=== PATIENT | female | born 1980 | race Caucasian/White ===

== ENCOUNTER 2017-07-10 14:34 | Emergency (ER) | payer OTHER ==
[2017-07-10 14:58] VITALS: BP 106/75
[2017-07-10 15:22] LABS: Basophils % (Auto) 0.4 % (0.0-1.8); Eosinophils # (Auto) 0.1 K/mm3 (0.0-0.4); Eosinophils % (Auto) 1.9 % (0.0-4.3); Hematocrit 37.8 % (30.3-42.9); Hemoglobin 12.6 gm/dl (10.1-14.3); Lymphocytes # (Auto) 2.8 K/mm3 (1.2-5.4); Lymphocytes % (Auto) 43.2 % (13.4-35.0); Mean Corpuscular HGB Conc 33 % (30-34); Mean Corpuscular Hemoglobin 31 pg (28-32); Mean Corpuscular Volume 94 fl (79-97); Monocytes # (Auto) 0.4 K/mm3 (0.0-0.8); Monocytes % (Auto) 5.9 % (0.0-7.3); Platelet Count 292 K/mm3 (140-440); Red Blood Count 4.01 M/mm3 (3.65-5.03); Red Cell Distribution Width 13.3 % (13.2-15.2)
[2017-07-10 15:34] LABS: Alanine Aminotransferase 14 units/L (7-56); Albumin 4.2 g/dL (3.9-5); BUN/Creatinine Ratio 18; Blood Urea Nitrogen 9 mg/dL (7-17); Calcium 9.2 mg/dL (8.4-10.2); Hemolysis Index 4; Lipase 53 units/L (13-60)
[2017-07-10 16:20] LABS: HCG Qualitative,Urine Negative (Negative)
[2017-07-10 16:25] LABS: Bilirubin,Urine NEG (Negative); Blood,Urine LG (Negative); Color,Urine Red (Yellow); RBC,Urine > 182.0 /HPF (0.0-6.0); Urobilinogen,Urine < 2.0 mg/dL (<2.0)
[2017-07-10] MEDS ORDERED: NORCO 7.5/325 ONE (18:01)
[2017-07-10] MEDS ORDERED: ZOFRAN ODT ONE (18:01)
[2017-07-10] MEDS ORDERED: ZOFRAN ODT PO ONE (18:01)
[2017-07-10] MEDS ORDERED: NORCO 7.5/325 PO ONE (18:01)
--- NOTE | 2017-07-10 18:05 | Emergency Department Report ---
Blank Doc - Documentation Documentation: Patient is a 37-year-old female who is complaining of right flank pain. Patient states pain is been present for approximately 1 week. Patient has nausea but no vomiting. Patient denies any dysuria this time. Patient is on her menses with this started just today. Laboratory studies will be done as well as urinalysis and CT rule out stone.
--- NOTE | 2017-07-10 20:28 | Cat Scan Report ---
FINAL REPORT EXAM: CT ABDOMEN PELVIS WO CON HISTORY: right flank pain TECHNIQUE: CT abdomen and pelvis without contrast PRIORS: None. FINDINGS: No acute abnormality identified in the lung bases. No focal abnormality identified within the liver parenchyma. The spleen demonstrates normal size and attenuation. No pancreatic abnormalities seen. Kidneys demonstrate no evidence of hydronephrosis or nephrolithiasis. No ureteral calculus identified. The adrenal glands are unremarkable. Abdominal aorta is normal in caliber. No pathologically enlarged lymph nodes are identified. No signs of free fluid or free air No evidence of small bowel dilatation. The appendix is identified and is normal in size no adjacent inflammatory change seen. Tubal ligation clips are noted at the the adnexa bilaterally. The urinary bladder is unremarkable. IMPRESSION: Negative. No acute abnormalities seen
--- NOTE | 2017-07-10 20:54 | Emergency Department Report ---
HPI - General Chief Complaint: Abdominal Pain Time Seen by Provider: 07/10/17 17:53 - HPI HPI: This is a 37-year-old female presents ED complaining of flank pain for the past 2-3 days. She does take some mild dysuria but no other complaints. She states that she is currently on her period and has no nausea/vomiting/abdominal pain/ chest pains or shortness of breath or problems ED Past Medical Hx - Past Medical History Previous Medical History?: Yes Additional medical history: Vaginal dleivery x 3 - Surgical History Past Surgical History?: No - Social History Smoking Status: Never Smoker Substance Use Type: Alcohol - Medications Home Medications: Home Medications Medication Instructions Recorded Confirmed Last Taken Type Ibuprofen [Motrin] 800 mg PO Q8HR PRN #30 tablet 07/10/17 Unknown Rx Sulfamethoxazole/Trimethoprim 1 each PO BID #14 tablet 07/10/17 Unknown Rx [Bactrim DS TAB] ED Review of Systems ROS: Stated complaint: ABD PN Other details as noted in HPI Constitutional: denies: chills, fever Eyes: denies: eye pain, eye discharge, vision change ENT: denies: ear pain, throat pain Respiratory: denies: cough, shortness of breath, wheezing Cardiovascular: denies: chest pain, palpitations Endocrine: no symptoms reported Gastrointestinal: denies: abdominal pain, nausea, diarrhea Genitourinary: denies: urgency, dysuria, discharge Musculoskeletal: denies: back pain, joint swelling, arthralgia Skin: denies: rash, lesions Neurological: denies: headache, weakness, paresthesias Psychiatric: denies: anxiety, depression Hematological/Lymphatic: denies: easy bleeding, easy bruising Physical Exam - Physical Exam Vital Signs: Vital Signs 07/10/17 07/10/17 14:53 18:07 Temperature 97.4 F L Pulse Rate 69 Respiratory 18 18 Rate Blood Pressure 106/75 O2 Sat by Pulse 99 Oximetry Physical Exam: GENERAL: Alert and oriented x3, no apparent distress, Normal Gait, atraumatic. HEAD: Head is normocephalic and a-traumatic. LUNGS: Symetrical with respiration, No wheezing, no rales or crackles, CTAB. HEART: S1, S2 present, regular rate and rhythm without murmur, no rubs, no gallops. Non tender to palpation ABDOMEN: No organomegaly was noted,Positive bowel sounds, soft, and non- distended. . Nontender to palpation on all Quadrants, NO CVA tenderness. BACK: Full range of motion, no spinal tenderness, nontender to palpation. NEUROLOGIC: The patient is cooperative with no focal neurologic deficits. PSYCHIATRIC: Mood is congruent with affect, denies suicidal or homicidal ideations. SKIN: Warm and dry, No lesions, No ulceration or induration present. ED Course Vital Signs 07/10/17 07/10/17 14:53 18:07 Temperature 97.4 F L Pulse Rate 69 Respiratory 18 18 Rate Blood Pressure 106/75 O2 Sat by Pulse 99 Oximetry ED Medical Decision Making - Lab Data Result diagrams: 07/10/17 15:12 07/10/17 15:12 Laboratory Last Values WBC 6.4 K/mm3 (4.5-11.0) 07/10/17 15: RBC 4.01 M/mm3 (3.65-5.03) 07/10/17 15:12 Hgb 12.6 gm/dl (10.1-14.3) 07/10/17 15:12 Hct 37.8 % (30.3-42.9) 07/10/17 15:12 MCV 94 fl (79-97) 07/10/17 15:12 MCH 31 pg (28-32) 07/10/17 15:12 MCHC 33 % (30-34) 07/10/17 15:12 RDW 13.3 % (13.2-15.2) 07/10/17 15:12 Plt Count 292 K/mm3 (140-440) 07/10/17 15:12 Lymph % (Auto) 43.2 % (13.4-35.0) H 07/10/17 15:12 Churchill % (Auto) 5.9 % (0.0-7.3) 07/10/17 15:12 Eos % (Auto) 1.9 % (0.0-4.3) 07/10/17 15:12 Baso % (Auto) 0.4 % (0.0-1.8) 07/10/17 15:12 Lymph # 2.8 K/mm3 (1.2-5.4) 07/10/17 15:12 Churchill # 0.4 K/mm3 (0.0-0.8) 07/10/17 15:12 Eos # 0.1 K/mm3 (0.0-0.4) 07/10/17 15:12 Baso # 0.0 K/mm3 (0.0-0.1) 07/10/17 15:12 Seg Neutrophils % 48.6 % (40.0-70.0) 07/10/17 15:12 Seg Neutrophils # 3.1 K/mm3 (1.8-7.7) 07/10/17 15:12 Sodium 139 mmol/L (137-145) 07/10/17 15:12 Potassium 3.9 mmol/L (3.6-5.0) 07/10/17 15:12 Chloride 103.1 mmol/L (98-107) 07/10/17 15:12 Carbon Dioxide 23 mmol/L (22-30) 07/10/17 15:12 Anion Gap 17 mmol/L 07/10/17 15:12 BUN 9 mg/dL (7-17) 07/10/17 15:12 Creatinine 0.5 mg/dL (0.7-1.2) L 07/10/17 15:12 Estimated GFR > 60 ml/min 07/10/17 15:12 BUN/Creatinine Ratio 18 % 07/10/17 15:12 Glucose 99 mg/dL (65-100) 07/10/17 15:12 Calcium 9.2 mg/dL (8.4-10.2) 07/10/17 15:12 Total Bilirubin < 0.20 mg/dL (0.1-1.2) 07/10/17 15:12 AST 17 units/L (5-40) 07/10/17 15:12 ALT 14 units/L (7-56) 07/10/17 15:12 Alkaline Phosphatase 70 units/L (35-129) 07/10/17 15:12 Total Protein 6.6 g/dL (6.3-8.2) 07/10/17 15:12 Albumin 4.2 g/dL (3.9-5) 07/10/17 15:12 Albumin/Globulin Ratio 1.8 % 07/10/17 15:12 Lipase 53 units/L (13-60) 07/10/17 15:12 Urine Color Red (Yellow) 07/10/17 15:57 Urine Turbidity Clear (Clear) 07/10/17 15:57 Urine pH 5.0 (5.0-7.0) 07/10/17 15:57 Ur Specific [place] 1.012 (1.003-1.030) 07/10/17 15:57 Urine Protein 100 mg/dl mg/dL (Negative) 07/10/17 15:57 Urine Glucose (UA) Neg mg/dL (Negative) 07/10/17 15:57 Urine Ketones Neg mg/dL (Negative) 07/10/17 15:57 Urine Blood Lg (Negative) 07/10/17 15:57 Urine Nitrite Neg (Negative) 07/10/17 15:57 Ur Reducing Substances Not Reportable 07/10/17 15:57 Urine Bilirubin Neg (Negative) 07/10/17 15:57 Urine Ictotest Not Reportable 07/10/17 15:57 Urine Urobilinogen < 2.0 mg/dL (<2.0) 07/10/17 15:57 Ur Leukocyte Esterase Tr (Negative) 07/10/17 15:57 Urine WBC (Auto) 26.0 /HPF (0.0-6.0) H 07/10/17 15:57 Urine RBC (Auto) > 182.0 /HPF (0.0-6.0) 07/10/17 15:57 U Epithel Cells (Auto) 4.0 /HPF (0-13.0) 07/10/17 15:57 Urine HCG, Qual Negative (Negative) 07/10/17 15:57 - Radiology Data Radiology results: report reviewed, image reviewed FINAL REPORT EXAM: CT ABDOMEN PELVIS WO CON HISTORY: right flank pain TECHNIQUE: CT abdomen and pelvis without contrast PRIORS: None. FINDINGS: No acute abnormality identified in the lung bases. No focal abnormality identified within the liver parenchyma. The spleen demonstrates normal size and attenuation. No pancreatic abnormalities seen. Kidneys demonstrate no evidence of hydronephrosis or nephrolithiasis. No ureteral calculus identified. The adrenal glands are unremarkable. Abdominal aorta is normal in caliber. No pathologically enlarged lymph nodes are identified. No signs of free fluid or free air No evidence of small bowel dilatation. The appendix is identified and is normal in size no adjacent inflammatory change seen. Tubal ligation clips are noted at the the adnexa bilaterally. The urinary bladder is unremarkable. IMPRESSION: Negative. No acute abnormalities seen Transcribed By: DK Dictated By: AMBER RUEDA MD Electronically Authenticated By: AMBER RUEDA MD Signed Date/Time: 07/10/172022 - Medical Decision Making 37-year-old female presents with urinary tract infection ED course: Urinalysis positive for bacteria, leukocyte esterase. CT scan of the abdomen shows no kidney stones. She reported above Vital signs are normal patient is in no acute distress. Patient labs and CT scans were discussed with her. She understands instructions. CT scan shows no abnormality,. I discussed the patient and follow up with primary care physician. I discussed the patient and take all antibiotics for urinary tract infection. Vital signs are normal patient is in no acute distress. Patient understands all instructions given Critical care attestation.: If time is entered above; I have spent that time in minutes in the direct care of this critically ill patient, excluding procedure time. ED Disposition Clinical Impression: UTI (urinary tract infection) Qualifiers: Urinary tract infection type: acute cystitis Hematuria presence: with hematuria Qualified Code(s): N30.01 - Acute cystitis with hematuria Disposition: TO HOME OR SELFCARE Is pt being admited?: No Does the pt Need Aspirin: No Condition: Stable Instructions: Urinary Tract Infection in Women (ED), Abdominal Pain (ED), Flank Pain (ED) Additional Instructions: Make sure to follow up with the primary care physician as discussed. Take all your medications as you've been prescribed. If you have any worsening symptoms or develop new symptoms please return to ED immediately. Prescriptions: Ibuprofen [Motrin] 800 mg PO Q8HR PRN #30 tablet PRN Reason: Pain Sulfamethoxazole/Trimethoprim [Bactrim DS TAB] 1 each PO BID #14 tablet Referrals: PRIMARY CAREMD [Primary Care Provider] - 3-5 Days [facility] [Outside] - 3-5 Days [facility] [Outside] - 3-5 Days [facility] [Outside] - 3-5 Days Forms: Accompanied Note, Work/School Release Form(ED) Time of Disposition: 21:02
== END 2017-07-10 23:21 | disposition home or self-care (01) ==
LOC: ED 14:34
DX: N39.0 Urinary tract infection, site not specified (principal)
CPT/HCPCS: 36415; 74176; 80053; 81001; 81025; 83690; 85025; 99284; Q0162